=== PATIENT | male | born 1995 | race Caucasian/White ===

== ENCOUNTER 2025-04-13 04:17 | Emergency (ER) | payer MEDICAID, SELFPAY ==
[2025-04-13 04:18] VITALS: BP 122/69; PULSE 87; RESP 20; TEMP 36.8; O2SAT 99; BMI 32.8
[2025-04-13 04:55] LABS: Hematocrit 41.4 % (42.0-52.0); Hemoglobin 14.0 g/dl (14.0-18.0); Imm Gran Abs Auto 0.08 X10*3/uL (0.00-0.03); Imm Gran Pct Auto 0.6 % (0.0-0.4); Lymphocytes Absolute Auto 1.3 X10*3/uL (1.2-4.9); MANUAL DIFF FLAG NO; Mean Corpuscular HGB Conc 33.8 g/dl (31.0-36.0); Mean Corpuscular Hemoglobin 28.7 pg (27.0-33.0); Mean Corpuscular Volume 84.8 fL (80.0-98.0); NRBC Abs Auto 0.000 X10*3/uL (0.0-0.012); NRBC Pct Auto 0.0 /100WBC (0.0-0.2); Platelet Count 232 X10*3/uL (160-400); Red Blood Count 4.88 X10*6/uL (4.60-5.80); White Blood Count 14.5 X10*3/uL (4.8-10.8)
[2025-04-13 05:10] LABS: Alanine Aminotransferase 25 U/L (0-40); Albumin Level 4.8 g/dL (3.5-5.0); Alkaline Phosphatase 74 U/L (39-117); Anion Gap 15 (12-20); Aspartate Amino Transferase 20 U/L (5-37); Blood Urea Nitrogen 15 mg/dL (9-16); Calcium 9.3 mg/dL (8.4-10.2); Carbon Dioxide 25 mmol/L (22-29); Chloride 105 mmol/L (96-108); Creatinine Clr Calc Pharmacy 117.2; Estimated Glomerular Filt Rate > 60; Lipase 35 U/L (8-78); Potassium 3.5 mmol/L (3.3-5.1); Sodium 141 mmol/L (135-145); Total Protein 8.2 g/dL (6.5-8.0)
--- OUTSIDE RECORDS SUMMARY | 2025-04-13 07:00 | XMS_ITS | Encounter Summary ---
Author Organization [facility] Address [address] [place] [address] Phone Care Team Providers Care Hot Stick Man Name Role Phone Kay Lama MD Primary Care Provider [phone] Encounter Details Date Type Department Care Team (Late st Contact Info) Description 12/27/2016 Conversion Encounter [facility] [place] [address] [place], [place] [id number] Social History Tobacco Use Types Packs/Day Years Used Date Smoking Tobacco: Never Assessed Sex and Gender Information Value Date Recorded Sex Assigned at Not on file Legal Sex Male 4:35 PM EDT Gender Identity Not on file Sexual Orientation Not on file documented as of this encounter Plan of Treatment Not on file documented as of this encounter Visit Diagnoses Not on filedocumented in this encounter Care Teams Hot Stick Man Relationship Specialty Start Date End Date Kay Lama MD [address] [place] [address] PCP - General 12/21/16 11/05/22 documented as of this encounter
--- OUTSIDE RECORDS SUMMARY | 2025-04-13 07:00 | XMS_ITS | Encounter Summary ---
Author Organization [facility] Address [address] [place] [phone] Phone Care Team Providers Care Hands Assembler Name Role Phone Kay Lama MD Primary Care Provider [phone] Encounter Details Date Type Department Care Team (Late st Contact Info) Description 05/24/2010 Documentation EM Family Medicine [address] [place] [address] Family Medicine, Physician [address] [place], [place] [id number] Social History Tobacco Use Types Packs/Day Years [...] on filedocumented in this encounter Care Teams Hands Assembler Relationship Specialty Start Date End Date Kay Lama MD [address] [place] [address] [place] [address] PCP - General 12/21/16 11/05/22 documented as of this encounter
--- OUTSIDE RECORDS SUMMARY | 2025-04-13 07:00 | XMS_ITS | Clinical Summary ---
Author Organization [facility] Address [address] [place] [phone] Phone Care Team Providers Care Innovation Manager Name Role Phone Unavailable Primary Care Provider Unavailabl e Immunizations Immunization Administration Dates Next Due DTaP 06/29/1997, 5,01/02/1994, 994,1993 Hep B, ped/adol 01/02/1994,1993,1993 Hib (HbOC) 01/09/1995,199 4,1993, 994 IPV 06/29/1997, 4,1993, 994 Influenza Split 01/20/2010 MMR 06/29/1997,05/23/1994 Meningococcal Conj (Menactra) [id number] 01/20/2010 Tdap 11/14/2006 Varicella 02/17/2010,01/18/2010 Social History Tobacco Use Types Packs/Day Years Used Date Smoking Tobacco: Never Assessed Sex and Gender Information Value Date Recorded Sex Assigned at Not on file Legal Sex Male 4:35 PM EDT Gender Identity Not on file Sexual Orientation Not on file Last Filed Vital Signs Vital Sign Reading Time Taken Comments Blood Pressure 90/60 06/16/2010 12:00 AM EST Pulse 96 01/20/2010 12:00 AM EDT Temperature 35.7 C (96.3 F) 01/20/2010 12:00 AM EDT Respiratory Rate - - Oxygen Saturation - - Inhaled Oxygen Concentration - - Weight 66.7 kg (147 lb) 06/16/2010 12:00 AM EST Height 164.6 cm (5' 4.8 ) 06/16/2010 12:00 AM ES T Body Mass Index 24.61 06/16/2010 12:00 AM EST Plan of Treatment Health Maintenance Due Date Last Done Comments DTaP,Tdap,and Td Vaccines (7 - Td or Tdap) 11/14/2016 11/14/2006, 06/29/1997, 01/09/1995, Additional history exists HPV Vaccines (1 - 3-dose SCDM series) 2020 Influenza Vaccines (#1) 2024 01/20/2010 COVID-19 Vaccine (2024- season) 2025 Hepatitis B Vaccines Completed 01/02/1994, 1993, 1993 HIB Vaccines Completed 01/09/1995, 12/12, 1993, Additional history exists IPV Vaccines Completed 06/29/1997, 12/12, 1993, Additional history exists MMR Vaccines Completed 06/29/1997, 05/23/1994 Meningococcal Vaccine Completed 01/20/2010 Varicella Vaccines Completed 02/17/2010, 01/18/2010 Hepatitis A Vaccines Aged Out No long er eligible based on patient's age to complete this topic Men B Vaccine Aged Out No longer elig ible based on patient's age to complete this topic Pneumococcal Vaccine Aged Out No long er eligible based on patient's age to complete this topic
== END 2025-04-13 07:28 | disposition left against medical advice (07) ==
PROVIDERS: Emergency Provider Emergency Medicine
DX: R10.10 Upper abdominal pain, unspecified (principal); R11.2 Nausea with vomiting, unspecified
CPT/HCPCS: 36415; 80053; 83690; 85025; 99281